=== PATIENT | female | born 1980 | race Caucasian/White ===

== ENCOUNTER → 2018-01-22 | Outpatient (CLI) | payer OTHER | LOC: FIMAGING 08:13 | PROVIDERS: ATTEND Obstetrics & Gynecology | DX: O09.512 Supervision of elderly primigravida, second trimester (principal); Z3A.19 19 weeks gestation of pregnancy ==

== ENCOUNTER 2018-04-14 16:43 | Observation (INO) | payer OTHER ==
--- NOTE | 2018-04-14 19:28 | PDGENHP ---
History and Physical History and Physical: CARE: [facility] HPI: Patient is a 37 yo G 1 P 0 at 30.5 weeks ega who presents to L&D after a fall at approximately 3:30 pm this afternoon while walking on ice. She fell primarily on right hand and knee but then ultimately landed on left side. She is teary eyed and concerned about safety of baby. Reports good activity - denies uterine cramping/contractions. No uterine tenderness. EDC: 06/19/2018 which is based on LMP: 09/11/17 which is known and consistent with Ultrasound at 6 weeks. Her is complicated by: -AMA -Anemia - hct 33.2 at 28 wks, taking daily ferrous sulfate Review of Systems: Constitutional: Denies any fever, chills, or fatigue HEENT: denies any visual changes, difficulty swallowing, hearing loss Cardiovascular: Denies any chest pain, palpitations, leg swelling Respiratory: denies any cough, wheezing, or shortness of breathe GI: Denies any nausea, vomiting, diarrhea, constipation : denies any dysuria, urgency, frequency, vaginal bleeding Musculoskeletal: denies any muscle or bone pain Skin: denies any rashes Neuro: denies any headache, seizures, lightheadedness, dizziness, or loss of consciousness Psychiatric: denies any depression, anxiety, or SI/HI thoughts HISTORY: Previous OB history: none Past medical history: none Past surgical history: none Medications: PNV, ferrous sulfate Allergies (list reaction): NKDA LABS: Rh: O pos ABS: Neg Rubella: Immune HbsAg: NR HIV: NR VDRL: NR 1hr: 103 GC: Neg Chlamydia: Neg Pap: Normal - 2017 PHYSICAL EXAM: Constitutional: WN, A&Ox3 HEENT: normocephalic atraumatic, supple Heart: RRR, no murmur Chest: CTA-B Abdomen: Soft, nontender, gravid SVE: deferred Extremities: tr edema, negative tristan's sign Neuro: grossly normal Psych: normal affect assessment: Reassuring FHTs, baseline 140s +accels, no decels, moderate variability Contractions: toco quiet Assessment: 1) 37 yo G 1P 0 with IUP@ 30.5 weeks ega 2) s/p fall on ice 3) No uterine tenderness, contractions or cramping. [place] quiet. 4) Cat 1 FHR tracing for 4 hours after fall Plan: Will d/c home with labor/bleeding precautions/FKCs reviewed Call if any uterine cramping/contractions/VB or decreased movement F/U at scheduled JESSICA visit
== END 2018-04-14 19:35 | disposition home or self-care (01) ==
LOC: FLD 16:43
PROVIDERS: ADMIT Advanced Practice Midwife; ATTEND Advanced Practice Midwife
DX: S69.91XA Unspecified injury of right wrist, hand and finger(s), initial encounter (principal); S89.91XA Unspecified injury of right lower leg, initial encounter; S39.91XA Unspecified injury of abdomen, initial encounter; W00.0XXA Fall on same level due to ice and snow, initial encounter; Z3A.30 30 weeks gestation of pregnancy; Y93.9 Activity, unspecified; Y92.9 Unspecified place or not applicable
CPT/HCPCS: 59025; G0378

== ENCOUNTER 2018-06-24 19:15 | Inpatient (IN) | payer OTHER ==
[2018-06-24] MEDS ORDERED: MISOPROSTOL 200 MCG TAB PO PRN (19:50)
[2018-06-24] MEDS ORDERED: EPSOM SALT 454 GM TP PRN (19:50)
[2018-06-24] MEDS ORDERED: TERBUTALINE SULFATE 1 MG/ML VIAL IV PRN (19:50)
[2018-06-24] MEDS ORDERED: OXYTOCIN/RINGERS LACTATE 1,000 ML IV PRN (19:50)
[2018-06-24] MEDS ORDERED: LIDOCAINE 1% 300 MG/30 ML SDV SC PRN (19:50)
[2018-06-24] MEDS ORDERED: IBUPROFEN 600 MG TAB PO PRN (19:50)
[2018-06-24] MEDS ORDERED: AMMONIA AROMATIC 1 EACH AMP IH PRN (19:50)
[2018-06-24] MEDS ORDERED: LR 1,000 ML IV PRN (19:50)
[2018-06-24] MEDS ORDERED: OLIVE OIL 118 ML BTL MISC PRN (19:50)
--- NOTE | 2018-06-24 20:10 | PDGENHP ---
History and Physical History and Physical: CARE: [facility] HPI: Patient is a 37 yo G 1 P 0 @ 40.5 weeks that presents to L&D with complaints of strong, regular uterine contractions since 2:00 PM. She took castor oil with eggs at 10:00 AM. Denies LOF, reports some light vaginal bleeding. EDC: 06/18/18 which is based on LMP: 09/11/17 which is known and consistent with Ultrasound at 7 weeks. Her is complicated by: AMA, had normal NIPT, level 2 u/s wnl. Review of Systems: Constitutional: Denies any fever, chills, or fatigue HEENT: denies any visual changes, difficulty swallowing, hearing loss Cardiovascular: Denies any chest pain, palpitations, leg swelling Respiratory: denies any cough, wheezing, or shortness of breathe GI: Denies any nausea, vomiting, diarrhea, constipation : denies any dysuria, urgency, frequency, vaginal bleeding Musculoskeletal: denies any muscle or bone pain Skin: denies any rashes Neuro: denies any headache, seizures, lightheadedness, dizziness, or loss of consciousness Psychiatric: denies any depression, anxiety, or SI/HI thoughts HISTORY: Previous OB history: nullip Social history: Family history: father-heart disease, [place]; MGma, diabetes, depression;mother sarcoidosis Past medical history: HPV, colposcopy in 2015. Past surgical history: denies Medications: PNV, zyrtec Allergies (list reaction): NKDA LABS: Rh: O+ ABS: Neg Rubella: Immune HbsAg: NR HIV: NR VDRL: NR 1hr: 103 GC: Neg Chlamydia: Neg Pap: Normal GBS: neg BMI: (prepreg) <25 PHYSICAL EXAM: Constitutional: WN, A&Ox3 HEENT: normocephalic atraumatic, supple Heart: RRR, no murmur Chest: CTA-B Skin: warm, dry, intact Abdomen: Soft, nontender, gravid SVE: 3/75/-2 Extremities: no edema, negative homans sign Neuro: grossly normal Psych: normal affect assessment: FHT baseline 115 bpm, +accels, no decels, moderate variability Contractions: toco q 2-3 min Assessment: 1) 37 yo G 1 P 0 with IUP@ 40.5 weeks 2) early labor 3) GBS neg 4) Cat 1 FHR tracing Plan: 1) Admit to L&D 2) anticipate
[2018-06-24 20:24] LABS: PLATELET COUNT 229 10^3/uL (150-400)
[2018-06-24] MEDS ORDERED: OLIVE OIL 118 ML BTL ONE (22:46)
[2018-06-24] MEDS ORDERED: AMMONIA AROMATIC 1 EACH AMP IH ONE (22:46)
[2018-06-24] MEDS ORDERED: OXYTOCIN 10 UNIT/ML VIAL ONE (22:47)
[2018-06-24] MEDS ORDERED: MISOPROSTOL 200 MCG TAB ONE (22:47)
--- NOTE | 2018-06-25 00:33 | OBDEL ---
Info Type: Vaginal Presentation at Delivery: Vertex L&D Analgesia/Anesthesia Type: None GBS+: No - Hospital Course Intrapartum: 06/25/18 00:30 Mom progressed well to complete. FOB and service manager at bedside for labor support throughout labor. FHT remained reassuring throughout first and second stage with intermittent monitoring. Indications for Delivery: Spontaneous Labor Vaginal Delivery - Delivery Provider Delivery Physician/CNM: Suzanne Da Silva - Labor and Delivery Onset of Contractions Date: 06/24/18 Onset of Contractions Time: 14:00 Onset of Contractions Type: Spontaneous Rupture of Membranes Date: 06/24/18 Rupture of Membranes Time: 20:05 Rupture of Membranes Type: Spontaneous Amniotic Fluid Color: Clear Dilation Complete Date: 06/24/18 Dilation Complete Time: 23:15 Placenta Delivery Date: 06/25/18 (trailing membranes removed with ring forceps) Placenta Delivery Time: 00:05 Total Hours of Labor: 10 Laceration: 1st Degree (no repair) Vaginal Sponge Count Correct: Yes Vaginal Needle Count Correct: Yes Vaginal Sweep Performed: Yes Delivery Events: None Delivery Comment: Head delivered over intact perineum, nuchal cord noted, not reduced. Shoulders and body followed atraumatically with maternal pushing effort. placed immediately skin to skin and dried and stimulate by RN. Data FROYLAN: 06/19/18 Gestational Age: 40 week(s) and 6 day(s) Keen Delivery Date: 06/24/18 Delivery Time: 23:57 Sex of Infant: Female Score (1 Min): 8 Score (5 Min): 9 ICD10 Worksheet Patient Problems: Problems Problem Status Onset (normal spontaneous vaginal delivery) Acute Post term , 41 weeks Acute - ICD10 Problem Qualifiers (1) (normal spontaneous vaginal delivery)
[2018-06-25] MEDS ORDERED: HYDROCORTISONE 0.5% CREAM TP PRN (00:36)
[2018-06-25] MEDS: IBUPROFEN 600 MG TAB PO PRN ×3 (06:33→18:53)
[2018-06-25] MEDS: DOCUSATE SODIUM 100 MG CAP PO PRN ×2 (08:54→21:16)
--- NOTE | 2018-06-25 19:14 | OBPP ---
Progress Note Assessment/Plan: Assessment: [id number] s/p PPD#1 Plan: routine PP care support PRN plan d/c home tomorrow 06/25/18 09:00 Subjective/ Course: 06/25/18 09:00 Pt is doing well, very happy with experience. She is ambulating and voiding without difficulty. She is without difficulty. She denies any pain and reports min bleeding. Ovidio @ BS and supportive. Objective: 06/24/18 20:05 Patient ABO/Rh O POSITIVE 06/24/18 20:05 Temp Pulse Resp BP Pulse Ox 36.7 C 98 17 120/86 H 95 06/25/18 16:00 06/25/18 16:00 06/25/18 16:00 06/25/18 16:00 06/25/18 16:00 Uterine Position/Fundal Height: Umbilicus -2, Midline Uterine Tone: Firm
[2018-06-25] MEDS: ACETAMINOPHEN 325 MG TAB PO PRN (21:17)
[2018-06-26] MEDS: IBUPROFEN 600 MG TAB PO PRN ×2 (00:10→08:29)
[2018-06-26] MEDS: ACETAMINOPHEN 325 MG TAB PO PRN (05:22)
[2018-06-26] MEDS: DOCUSATE SODIUM 100 MG CAP PO PRN (08:29)
[2018-06-26 08:43] VITALS: BP 96/67
--- NOTE | 2018-06-26 09:10 | OBGCSDC ---
General Delivery Information - General Info : 1 Para: 1 Abortions: 0 Type: Vaginal L&D Analgesia/Anesthesia Type: None Admission Date: 06/24/18 Labs: Patient ABO/Rh O POSITIVE 06/24/18 20:05 Hct 38.8 % (38.0-47.0) 06/24/18 20:05 - Hospital Course Intrapartum: 06/25/18 00:30 Mom progressed well to complete. FOB and facilities flight check pilot at bedside for labor support throughout labor. FHT remained reassuring throughout first and second stage with intermittent monitoring. : 06/25/18 09:00 Pt is doing well, very happy with experience. She is ambulating and voiding without difficulty. She is without difficulty. She denies any pain and reports min bleeding. Ovidio @ BS and supportive. 06/26/18 09:09 S) Pt doing well, reports min pain and bleeding. she is ambulating and voiding without difficulty. She is . She desires discharge home today. O) VSS, afebrile constitutional: WNWF, A&Ox3 HEENT: normocephalic, atraumatic, supple Heart: RRR, No murmur Chest: CTA-B Abdomen: Soft, nontender Uterus: Firm at U-2 Lochia: Minimal rubra Perineum: Intact, healing well Extremities: Trace edema, and negative Ronda's sign Neuro: Grossly normal A) 37 year-old P1 S/P PPD#2 P) Discharge home today Continue Pelvic rest x6wks Discussed danger signs (infection, preeclampsia, depression, heavy bleeding, etc) RTO in 2/4/6 weeks Vaginal - Delivery Provider Delivery Physician/CNM: Suzanne Da Silva - Diagnosis Labor: Spontaneous Rupture of Membranes Type: Spontaneous Amniotic Fluid Color: Clear Laceration: 1st Degree (no repair) Delivery Events: None [place] Data FROYLAN: 06/19/18 Gestational Age: 41 week(s) and 0 day(s) Keen Delivery Date: 06/24/18 Delivery Time: 23:57 Sex of : Female Weight (gm): 3373.593 g Score (1 Min): 8 Score (5 Min): 9 Discharge Information - Discharge Information Prescriptions: Ibuprofen [Motrin (*)] 600 mg PO Q6HRS PRN #30 tab PRN Reason: Pain, Mild Able To Take Po Docusate Sodium [Colace 100 MG (*)] 100 mg PO BID PRN #30 cap PRN Reason: Constipation Condition: Good
== END 2018-06-26 12:35 | disposition home or self-care (01) | DRG 807 ==
LOC: FLD 19:15 → FOB 06-25 02:05
PROVIDERS: ADMIT Advanced Practice Midwife; ATTEND Advanced Practice Midwife
PROC: 10E0XZZ Delivery of Products of Conception, External Approach (ICD-10-PCS; principal; 2018-06-24)
DX: O70.0 First degree perineal laceration during delivery (principal); Z37.0 Single live birth; Z3A.40 40 weeks gestation of pregnancy
CPT/HCPCS: J2590; J3105